=== PATIENT | female | born 2000 | race Hispanic/Latino ===

== ENCOUNTER 2022-10-24 04:55 | Emergency (ER) | payer OTHER ==
[~2022-10-24] VITALS: Ht 162.6 cm; Wt 95.3 kg
[2022-10-24 04:58] VITALS: BP_DIAS 78
[2022-10-24 05:30] VITALS: BP_SYST 0
== END 2022-10-24 05:40 | disposition home or self-care (01) ==
LOC: EDH 04:55
DX: R68.89 Other general symptoms and signs (principal); Z53.21 Procedure and treatment not carried out due to patient leaving prior to being seen by health care provider
CPT/HCPCS: 99281